=== PATIENT | male | born 1960 | race Caucasian/White ===

== ENCOUNTER 2019-12-27 13:44 | Outpatient (CLI) | payer BC, SELFPAY ==
--- NOTE | 2019-12-27 14:06 | ECHO_ITS ---
Patient Info Name: Aleksandr Greer Age: 59 years : 1960 Gender: Male Ht: 74 in Wt: 256 lbs BSA: 2.49 m2 HR: 58 bpm BP: 152 / 93 mmHg Technical Quality: Good Exam Date: 12/27/2019 2:08 PM Exam Location: [facility] Pulmonary Patient Status: Outpatient Admit Date: 12/27/2019 Staff Ordering Physician: Clarissa Jacinto Neuropsychology Division Chief: Yary Mcnamara RDCS Attending Provider: Clarissa Jacinto Referring Physician: Orville SÁNCHEZ; Exam Type: CA echo doppler color flow Study Info Indications R60.0 - Localized edema Complete two-dimensional, color flow and Doppler transthoracic echocardiogram is performed. Summary 1. Left ventricular chamber dimension is moderately enlarged. 2. Left ventricular systolic function is normal, estimated at 60-65%. 3. The left ventricular diastolic function is abnormal. 4. E/e' 13 is mildly elevated. 5. Left atrial chamber dimension is mildly enlarged. 6. There is moderate aortic valve regurgitation. AI Pt1/2 637 ms. 7. The mitral valve has mildly calcified annulus. 8. There is trace mitral valve regurgitation. 9. There is trace tricuspid valve regurgitation. 10. No pulmonary hypertension, estimated pulmonary arterial systolic pressure is 33 mmHg. 11. There is trace pulmonic regurgitation. Left Ventricle E/e' 13 is mildly elevated. Left ventricular chamber dimension is moderately enlarged. Left ventricular systolic function is normal, estimated at 60-65%. The left ventricular diastolic function is abnormal. Right Ventricle Right ventricular chamber dimension is normal. Right ventricular systolic function is normal. Left Atria Left atrial chamber dimension is mildly enlarged. Right Atria Right atrial chamber dimension is normal. Aortic Valve There is moderate aortic valve regurgitation. AI Pt1/2 637 ms. The aortic valve is trileaflet. There is no aortic valve stenosis. Pulmonic Valve There is trace pulmonic regurgitation. Mitral Valve The mitral valve has mildly calcified annulus. There is no mitral valve stenosis. There is trace mitral valve regurgitation. Tricuspid Valve There is trace tricuspid valve regurgitation. No pulmonary hypertension, estimated pulmonary arterial systolic pressure is 33 mmHg. Pericardium/Pleural There is no pericardial effusion. Inferior Vena Cava Normal inferior vena cava with >50% collapse upon inspiration consistent with normal right atrial pressure, 5 mmHg. Aorta The aortic root size at the sinus of Valsalva is normal. Left Ventricular Outflow Tract Name Value Normal LVOT 2D LVOT Diameter 2.2 cm LVOT Doppler LVOT Peak Gradient 4 mmHg LVOT Mean Gradient 2 mmHg LVOT VTI 28 cm LVOT VTI/AV VTI Ratio 1.0 LVOT Stroke Volume 104 ml LVOT CO 5.1 l/min LVOT CI 2.1 l/min/m2 Pulmonic Valve Name
== END 2019-12-27 13:45 | disposition home or self-care (01) ==
PROVIDERS: PCP Internal Medicine; Visit Provider Clinical Nurse Specialist
DX: R60.0 Localized edema (principal); R93.1 Abnormal findings on diagnostic imaging of heart and coronary circulation
CPT/HCPCS: 93306

== ENCOUNTER 2020-01-29 00:28 | Outpatient (CLI) | payer OTHER, BC, SELFPAY ==
[2020-01-29 19:01] LABS: SARS-CoV-2 RNA PCR Negative
== END 2020-01-29 00:29 | disposition home or self-care (01) ==
LOC: ANHCOVIDDT 00:28
PROVIDERS: PCP Internal Medicine; Visit Provider Specialist
DX: Z01.818 Encounter for other preprocedural examination (principal); Z11.59 Encounter for screening for other viral diseases
CPT/HCPCS: 87635; C9803; U0003

== ENCOUNTER 2020-01-31 05:35 | Day surgery (SDC) | payer BC, SELFPAY ==
[2020-01-30 16:55] VITALS: BMI 32.1
[2020-01-31] VITALS (11 sets, daily range): BP systolic 131–151; BP diastolic 83–105; PULSE 56–72; RESP 11–16; O2SAT 94–100
--- NOTE | 2020-01-31 | ECHO_ITS ---
Patient Info Name: Aleksandr Greer Age: 59 years : 1960 Gender: Male Ht: 74 in Wt: 250 lbs BSA: 2.46 m2 HR: 66 bpm BP: 145 / 94 mmHg Heart Rhythm: Sinus Rhythm Technical Quality: Good Exam Date: 01/31/2020 12:36 PM [facility] Patient Status: Outpatient Admit Date: 01/31/2020 Staff Ordering Physician: Gabriel Mcgovern MD Extra Hand: Cheryl Azul RDCS Attending Provider: Gabriel Mcgovern MD Referring Physician: Shaniqua MERCEDES; Exam Type: CA echo transesophageal Study Info Indications - aortic palpitation Complete two-dimensional, color flow and Doppler transesophageal study is performed. Complications No complication. Procedure Details Transesophageal echocardiography was performed easily and without complication in the slab inspector holding area following or pharyngeal benzocaine spray and sedation with Versed and fentanyl. Summary 1. Transesophageal echocardiography was performed easily and without complication in the slab inspector holding area following or pharyngeal benzocaine spray and sedation with Versed and fentanyl. 2. The aortic valve is normal. 3. There is mild aortic valve regurgitation. 4. Mild regurgitation of an anatomically normal appearing trileaflet aortic valve identified. 5. Surgical treatment of the patient's aortic regurgitation is not indicated based on the side. Left Ventricle Left ventricular chamber dimension is normal. Left ventricular systolic function is normal with an ejection fraction by Biplane Method of Discs of Empty. Right Ventricle Right ventricular chamber dimension is normal. Left Atria Left atrial chamber dimension is mildly enlarged. Right Atria Right atrial chamber dimension is normal. Atrial Septum Intact interatrial septum visualized by color flow imaging. Aortic Valve The aortic valve is normal. There is mild aortic valve regurgitation. Mild regurgitation of an anatomically normal appearing trileaflet aortic valve identified. Pulmonic Valve The pulmonic valve is normal. Mitral Valve The mitral valve has normal leaflets. There is trace mitral valve regurgitation. Tricuspid Valve The tricuspid valve leaflets are normal. Pericardium/Pleural The pericardium appears normal. Inferior Vena Cava Not well visualized inferior vena cava with Empty collapse upon inspiration consistent with Empty right atrial pressure, Empty. Report Signatures
[2020-01-31 10:52] LABS: Hematocrit 39.3 % (42.0-52.0); Hemoglobin 13.4 g/dL (14.0-18.0); Mean Corpuscular HGB Conc 34.1 g/dl (32-36); Mean Corpuscular Hemoglobin 32.4 pg (26-34); Mean Corpuscular Volume 95.2 fl (80-100); Mean Platelet Volume 10.6 fl (7.4-10.4); Platelet Count Result 145 k/mm3 (150-375); Red Blood Count 4.13 M/mm3 (4.6-6.20); Red Cell Distribution Width 14.4 % (11.5-14.5); White Blood Count 5.9 K/mm3 (4.5-10.0)
--- NOTE | 2020-01-31 10:54 | SUR.PREOP ---
1030-PT PRESENTS TO THE [facility] FOR A [facility]NA[facility]. NO DISTRESS NOTED. PIV STARTED AND LABS OBTAINED AND SENT PER ORDER. WILL CONTINUE TO MONITOR.
[2020-01-31 11:12] LABS: Alanine Aminotransferase 22 U/L (4-50); Albumin Level 3.8 g/dL (3.5-5.1); Alkaline Phosphatase 101 U/L (38-126); Aspartate Amino Transferase 27 U/L (17-59); Bilirubin,Total 1.2 mg/dL (0.2-1.3); Blood Urea Nitrogen 14 mg/dL (9-20); Calcium 8.7 mg/dL (8.4-10.2); Carbon Dioxide 23 mmol/L (22-30); Chloride 103 mmol/L (98-107); Estimated CRCL calculation 86 ml/min; Estimated Glomerular Filt Rate > 60; Glucose 108 mg/dL (75-110); Potassium 4.2 mmol/L (3.4-5.0); Sodium 133 mmol/L (137-145)
--- NOTE | 2020-01-31 12:28 | WPDMODSED ---
Moderate Sedation Note-Pt Data Patient Data Diagnosis: Aortic valve regurgitation Present Complaint: Lower extremity edema Procedure to be performed/Plan: Transesophageal echocardiogram Allergies Allergy/AdvReac Type Severity Reaction Status Date / Time No Known Allergies Allergy Unverified 08/14/12 15:45 Home Medications Medication Instructions Recorded Confirmed Type atorvastatin 20 mg tablet 20 mg PO DAILY #90 tablet 12/17/19 01/31/20 Rx carvedilol 12.5 mg tablet 12.5 mg PO Q12H 90 Days #180 tablet 12/17/19 01/31/20 Rx cholecalciferol (vitamin D3) 1,250 1,250 mcg PO WEEKLY #8 cap 12/17/19 01/31/20 Rx mcg (50,000 unit) capsule hydrocodone 10 mg-acetaminophen 1 tablet PO Q4H PRN #15 tablet 12/17/19 01/31/20 Rx 325 mg tablet montelukast 10 mg tablet 10 mg PO DAILY #90 tablet 12/17/19 01/31/20 Rx tacrolimus 1 mg capsule 2 mg PO Q12H cap 12/17/19 01/31/20 History zolpidem 10 mg tablet 10 mg PO .HS PRN #30 tablet 12/27/19 01/31/20 Rx Sedation/Anesthesia: No previous sedation/anesthesia problems (including family history). [facility] Past Medical History Medical History (Updated 01/10/20 @ 10:46 by SHERIE Barr) Back Pain Hyperlipidemia Hypertension Hypogonadism Surgical History Surgical History (Updated 12/17/19 @ 11:12 by SHERIE Barr) Liver transplanted 12/2012 Family History Family History (Updated 12/17/19 @ 09:11 by Moira Lim [facility]) Mother Liver cancer Sibling Patient's brother is in good health Father Cerebrovascular accident, Onset Age: 80 Patient's father is Grandparent Liver cancer Social History Social History (Updated 12/17/19 @ 09:11 by Moira Lim CMA) Smoking status: Current some day smoker Tobacco type: cigarettes, cigars and smokeless tobacco Smokeless tobacco user: chewing tobacco Additional smoking assessment comments: may 1-2 cigarettes, or a cigar, or chew some tobacco or not have any at all Alcohol intake: never Substance use: never Substance use type: does not use Living arrangements: with family Gender identity (if verbalized by the patient): Male Spiritual care concerns: No Mod Sed Physical Exam Physical Exam Pre Procedural Exam: Normal: Appearance, Nose, Neck, Throat, Airway, Lungs, Heart Size, Heart Rate, Heart Rhythm, Neuro Exam and Extremities Hours since solid foods: 12 Hours since liquid intake: 12 Internal Medicine - PN: Obj Da Vital Signs Vital Signs: Vital Signs - 24 hr 01/31/20 10:51 Pulse Rate 57 L Respiratory Rate 14 Blood Pressure 151/86 H Pulse Oximetry 99 Labs CBC & Chem 7: 01/31/20 10:29 01/31/20 10:29 Labs: Laboratory Results - last 24 hr 01/31/20 01/31/20 10:29 10:29 WBC 5.9 RBC 4.13 L Hgb 13.4 L Hct 39.3 L MCV 95.2 MCH 32.4 MCHC 34.1 RDW 14.4 Plt Count 145 L MPV 10.6 H Sodium 133 L Potassium 4.2 Chloride 103 Carbon Dioxide 23 BUN 14 Creatinine 1.10 Estim Creat Clear Calc 86 Estimated GFR > 60 Glucose 108 Calcium 8.7 Total Bilirubin 1.2 AST 27 ALT 22 Alkaline Phosphatase 101 Total Protein 7.0 Albumin 3.8 ASA Classification/Sedation ASA Classification/Sedation ASA Class: II Emergent: No Risks: Risks, benefits and alternatives explained and patient/family accepted plan for sedation. Patient re-evaluated immediately prior to sedation.
--- NOTE | 2020-01-31 12:56 | P.PCNCC_ITS ---
Cardiac Cath Procedure Note Date of procedure:: 01/31/20 Performing physician:: Gabriel Mcgovern MD Indication:: Lower extremity edema Aortic valve regurgitation Brief clinical history:: This is a 59-year-old man was a liver transplant recipient. He has accumulating lower extremity edema as well as vascular Doppler studies demonstrating evidence of thrombotic venous disease. He also had an echocardiogram read by a separate parts cataloguer demonstrating evidence of moderate aortic regurgitation. For this reason the patient was referred to see me in consultation. A transesophageal echocardiogram is now been recommended to further evaluate the significance of his aortic regurgitation Procedure Procedure performed:: Transesophageal echocardiogram Sedation/Medication given:: Fentanyl 50 mg Versed 4 mg Case start time 12:34 p.m. Case end time 12:52 p.m. Sedation provided by Rod Mullins RN, trained observer Estimated blood loss:: zero Procedure note:: The patient was brought to the cardiac catheterization lab holding area in the postabsorptive state. He was in supine position on or off in pharyngeal benzocaine was sprayed for topical anesthesia. He was then sedated using combination of fentanyl 50 mg and 4 mg of Versed in aliquots as detailed above. He was sedated very well for the procedure. The HANNAH probe was placed into the oropharynx and then guided into the esophagus easily where HANNAH imaging was completed. Following imaging the probe was withdrawn and patient was in stable condition regaining responsiveness without any apparent procedural complications. Findings:: The left atrium is mildly enlarged. The mitral valve leaflets are normal in appearance there is a trivial jet of MR a centrally directed jet identified. The left ventricle is mildly hypertrophied and of normal dimension all segments contract well global ejection fraction is in the vicinity of 55- 60%. The aortic valve is a normal-appearing trileaflet structure. There appears to be a mild centrally directed jet of AI seen in the LV outflow tract in short axis it is a centrally directed very mild narrowing and necked jet. Aortic root dimension is normal. Right-sided chambers are normal in appearance the interatrial septum is intact. There is no pericardial effusion. The descending thoracic aorta aortic arch and ascending aorta appear to be unremarkable. Conclusion:: 1. Mild aortic valve regurgitation, centrally directed jet is noted in anatomically normal appearing valve Trivial mitral regurgitation Normal left ventricular systolic function Gabriel Mcgovern MD [facility]
== END 2020-01-31 14:33 | disposition home or self-care (01) ==
PROVIDERS: PCP Internal Medicine; Visit Provider Specialist
PROC: (CPT 93312; principal; 2020-01-31 11:30)
DX: I08.0 Rheumatic disorders of both mitral and aortic valves (principal); I10 Essential (primary) hypertension; E78.5 Hyperlipidemia, unspecified; Z94.4 Liver transplant status; F17.210 Nicotine dependence, cigarettes, uncomplicated; F17.290 Nicotine dependence, other tobacco product, uncomplicated; Z79.899 Other long term (current) drug therapy
CPT/HCPCS: 36415; 80053; 85027; 93312; 93320; 93325; J2250; J3010